=== PATIENT | male | born 1995 | race Caucasian/White ===

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

== ENCOUNTER 2018-01-05 00:36 | Emergency (ER) | payer OTHER ==
[~2018-01-05 00:36] MED LIST: CETI10TA84 PO; LEVO75TA PO; MULT-506 PO
[2018-01-05 00:42] VITALS: Ht 185.4 cm
[2018-01-05 01:12] LABS: BLOOD UREA NITROGEN 13 mg/dl (7-18); CALCIUM 8.2 mg/dl (8.5-10.1); CARBON DIOXIDE 23 mmol/L (21-32); GLUCOSE 91 mg/dl (70-99); POTASSIUM 3.8 mmol/L (3.5-5.1); SODIUM 145 mmol/L (136-145)
[2018-01-05 01:30] VITALS: TEMP 37
--- NOTE | 2018-01-05 06:17 | EMERGENCY ROOM VISIT NOTE ---
History First contact with patient: 00:31 Chief Complaint: ALCOHOL OVERDOSE Stated Complaint: ALCOHOL OVERDOSE Nursing Triage Summary: pt arrived to room C02A via BLS for alcohol overdose. Per EMS [place], was found urinating on the sidewalk and police and EMS were called. Pt attempted to run from police and EMS. Pt reports that he drank 3 drinks this evening. History of Present Illness The patient is a 22 year old male who presents to the Emergency Room via EMS for evaluation of alcohol overdose. Per EMS, the patient was [place] and was found urinating on the sidewalk. The patient attempted to run from police and EMS. He admits to having 3 mixed drinks this evening. He denies any drug use or trauma. History is somewhat limited secondary to patient 's intoxicated state. Review of Systems A complete 10 point review of systems was reviewed with the patient with pertinent positives and negatives as per history of present illness. All else were negative. Past Medical/Surgical History Medical Problems: (1) No significant active problems Social History Smoking Status: Never Smoker Alcohol Use: none Drug Use: none Marital Status: single Housing Status: lives with roommate Occupation Status: [employer] student Current/Historical Medications Scheduled Cetirizine (Zyrtec), 10 MG PO DAILY Levothyroxine Sodium (Synthroid), 75 MCG PO DAILY Multivitamin (Multivitamin), 1 TAB PO DAILY Physical Exam Vital Signs Date Time Temp Pulse Resp B/P (MAP) Pulse Ox O2 Delivery O2 Flow Rate FiO2 01/05/18 07:15 66 14 95 01/05/18 07:00 98/52 01/05/18 06:45 63 14 95 01/05/18 06:00 69 16 96/47 96 Room Air 01/05/18 05:10 69 16 116/45 94 Room Air 01/05/18 04:06 71 01/05/18 04:00 68 14 88/67 94 Room Air 01/05/18 02:45 76 14 95/56 98 Room Air 01/05/18 01:44 63 18 93 01/05/18 01:30 37.0 77 13 124/70 94 Room Air 01/05/18 00:44 74 18 94 01/05/18 00:42 37.0 70 14 123/69 94 Room Air 01/05/18 00:41 74 01/05/18 00:39 65 12 123/69 93 Room Air Physical Exam VITALS: Vitals are noted on the nurse's note and reviewed by myself. Vital signs stable. GENERAL: This is a 22-year-old male, sitting up in bed, appears to be visibly intoxicated, smells of ETOH. SKIN: The skin was without erythema, edema, or bruising. HEAD: Normocephalic atraumatic. EARS: External auditory canals clear. No hemotympanum. EYES: Pupils equal round and reactive to light and accommodation. NOSE: No deformities noted. MOUTH: No loose or chipped teeth. NECK: No cervical spine tenderness. HEART: Regular rate and rhythm without murmurs gallops or rubs. LUNGS: Clear to auscultation bilaterally without wheezes, rales or rhonchi. ABDOMEN: Soft, nontender. MUSCULOSKELETAL: Full range of motion throughout. Strength intact throughout. NEURO: Patient was alert and oriented to person place and time. Speech slurred. Gross sensation intact. Patient cooperative with examiner. Medical Decision & Procedures Laboratory Results 01/05/18 00:41 Test 01/05/18 00:41 Anion Gap 12.0 mmol/L (3-11) Estimated GFR () 111.4 Estimated GFR (Non- 96.1 BUN/Creatinine Ratio 12.0 (10-20) Calcium Level 8.2 mg/dl (8.5-10.1) Ethyl Alcohol mg/dL 324.0 mg/dl (0-3) Medical Decision Differential diagnosis includes alcohol intoxication, drug use, infection, hypoglycemia, head trauma, among others. The patient is a 22-year-old male who presents today for evaluation of probable alcohol intoxication. Labs revealed an alcohol of 324. Kidney function was found to be within normal limits. Labs were otherwise unremarkable. There is no evidence of head trauma or infection on exam. The patient was placed on the court recording monitor and placed in the prone position. They were monitored for an appropriate amount of time and when they were more sober, they were reassessed and discharged home with a sober friend. The patient was advised not to drink anymore alcohol today and to follow-up with [facility] services for any further concerns. Medication Reconcilliation Current Medication List: was personally reviewed by me Blood Pressure Screening Patient's blood pressure: Normal blood pressure Impression Primary Impression: Alcoholic intoxication Departure Information Dispostion Home / Self-Care Condition GOOD Referrals No Doctor, Assigned (PCP) Patient Instructions My [facility] Additional Instructions You were evaluated in emergency department for intoxication. This is a sign of Alcohol Abuse and should not be taken lightly. You had a blood alcohol level that was significantly elevated. Over the next 24 hours keep well hydrated and eat light meals. Don't drink any more alcohol. This is important. Please discuss this visit with your Primary Care Provider, [facility] and/or your loved ones. Unless an exceptional circumstance, the Hospital DOES NOT contact anyone during your visit, nor is your Protected Medical Information released to anyone without your approval/request. This means we do not contact your Parents, the Police, [facility] [employer] etc. However, you will likely receive a bill from the Hospital and/or your Insurance company, which will usually be sent to the Primary Policy Spencer (often one's Parents) If your incident was on campus, or if the Police were involved, they will often contact the University to make them aware of what happened. Often this will result in you being required to take Alcohol Education classes (ie BASICS class) . Please see information given to you at discharge regarding contact for this. If the Police were involved you will likely be cited for public intoxication. Please contact either [facility] Police or the [place] Police for further information. Call 911 or return to Emergency Department if you develop: Passing out, difficulty breathing, many episodes of vomiting, blood in vomit or stool, abdominal pain, fevers, or other severe symptoms. We are always here to help if you feel you need further evaluation or treatment. Problem Qualifiers Primary Impression: Alcoholic intoxication Complication of substance-induced condition: uncomplicated Qualified Codes: F10.920 - Alcohol use, unspecified with intoxication, uncomplicated
[2018-01-05 07:00] VITALS: BP 98/52
[2018-01-05 07:15] VITALS: PULSE 66; O2SAT 95
== END 2018-01-05 07:42 | disposition home or self-care (01) ==
LOC: C.EDC 00:36
DX: F10.129 Alcohol abuse with intoxication, unspecified (principal); Z79.899 Other long term (current) drug therapy